=== PATIENT | male | born 1995 | race Caucasian/White ===

== ENCOUNTER 2017-02-24 21:05 | Emergency (ER) | payer SELFPAY ==
[~2017-02-24] VITALS: Ht 175.3 cm; Wt 82.0 kg
[2017-02-24 21:31] VITALS: TEMP 37.2; Ht 175.3 cm; Wt 82.0 kg
--- NOTE | 2017-02-24 22:08 | DIAGNOSTIC IMAGING REPORT ---
RIGHT MIDDLE FINGER 3 VIEWS HISTORY: Right middle finger injury and pain. COMPARISON: None. FINDINGS: Nondisplaced comminuted fracture within the proximal phalanx of the right middle finger. There is soft tissue swelling within the proximal right middle finger. No radiopaque foreign bodies. No dislocation. No radiopaque foreign bodies. IMPRESSION: Nondisplaced fracture within the proximal phalanx of the right middle finger. Electronically signed by: Morgan Sanchez M.D. 02/24/2017 10:06 PM Dictated Date/Time: 02/24/2017 10:05 PM
[2017-02-24] MEDS ORDERED: XYLOCAINE 1%/SOD BICARB 20 ML VIAL INFIL ONE (22:12)
[2017-02-24] MEDS ORDERED: CEPH500C2 PO (22:27)
[2017-02-24] MEDS ORDERED: CEPHALEXIN 500MG HOME PACK 1 EA BTL PO ONE (22:30)
[2017-02-24 22:36] VITALS: BP 128/72; PULSE 70; O2SAT 98
--- NOTE | 2017-02-25 04:43 | EMERGENCY ROOM VISIT NOTE ---
ED Visit Note First contact with patient: 22:05 CHIEF COMPLAINT: Finger laceration HISTORY OF PRESENT ILLNESS: This 21 yo patient presents to the emergency department with family after cutting the right f middle finger after he cut it on a piece of metal pipe that fell. The bleeding has not stopped. Denies weakness or numbness of the finger. The patient has limited range of motion of the finger. The patient rates the pain as throbbing and 5/10. The patient denies any other injuries. The patient's tetanus shot is up to date. REVIEW OF SYSTEMS: A 6 system review of systems was completed with positives and pertinent negatives listed in the HPI. ALLERGIES: Erythromycin, macrolides MEDICATIONS: None PMH: None SOCIAL HISTORY: No drug use PHYSICAL EXAM: Vital Signs: Reviewed Nurse's notes, vital signs stable. GENERAL : Pleasant male, in no acute distress, well developed, well nourished. SKIN: There is a 3 cm long laceration on the dorsal aspect of the right middle finger. The edges gape apart with traction. There is no foreign material in the wound and it looks clean. There is bleeding. No deep structures such as tendons , bones, or significant blood vessels are seen in the base of the wound. Limited Extension and flexion of the finger secondary to pain. Full range of motion of the wrist and other fingers. Capillary refill less than 2 seconds. Normal sensation to light and sharp touch. EMERGENCY DEPARTMENT COURSE: I examined the patient. Using sterile technique the wound was cleansed with Betadine. 2 ml of 1% buffered lidocaine was used to perform a digital block to anesthetize the patient. The area was sterilely draped. Once the patient was anesthetized, the wound was copiously irrigated under pressure with sterile saline. The wound was explored and there were no deep structures injured. The laceration was repaired using 5 simple interrupted 5-0 nylon sutures. The patient tolerated the procedure well. Hemostasis was achieved. The area was cleaned with sterile saline and dressed with bacitracin ointment and bandage. X-ray the finger was reviewed by myself and read by radiology and concerning for nondisplaced fracture of the proximal phalanx. Patient was placed in a finger splint and neurovascular status was rechecked and replacement and is intact. He was started on antibiotics for open finger fracture. He Is advised to follow-up with orthopedics in a few days or here in the ER sooner for severe pain, signs of infection, numbness, tingling , worsening signs or symptoms or as needed. The patient was discharged home in good condition. Differential diagnosis includes sprain, strain, fracture, open fracture, laceration, tendon injury, vascular injury, and other etiologies were considered. DIAGNOSIS: #1 open finger fracture with laceration to the right hand middle finger DISCHARGE INSTRUCTIONS & TREATMENT: As below Problem List Medical Problems: (1) Hand contusion Status: Resolved Current/Historical Medications Scheduled Cephalexin Monohydrate (Keflex), 500 MG PO QID Allergies Coded Allergies: Erythromycin (Unverified Allergy, Unknown, VOMITING, 02/24/17) Macrolides (Unverified Allergy, Unknown, VOMITING, 02/24/17) Vital Signs Date Time Temp Pulse Resp B/P (MAP) Pulse Ox O2 Delivery O2 Flow Rate FiO2 02/24/17 22:36 70 17 128/72 98 02/24/17 21:31 37.2 76 18 147/74 100 Room Air Medications Administered Medications (Trade) Dose Ordered Sig/Evonne Route Start Time Stop Time Status Last Admin Dose Admin Cephalexin Monohydrate (Keflex 500MG Home Pack) 1 homepack NOW ONCE PO 02/24/17 22:30 02/24/17 22:31 DC 02/24/17 22:35 1 HOMEPACK Departure Information Impression Primary Impression: Open fracture of finger of right hand Dispostion Home / Self-Care Condition GOOD Prescriptions Cephalexin Monohydrate (KEFLEX) 500 Mg Cap 500 MG PO QID for 9 Days, #36 CAP Prov: Renetta Yi ., MIKAELA 02/24/17 Referrals Yusef Schumacher MD Forms WORK / SCHOOL INSTRUCTIONS, HOME CARE DOCUMENTATION FORM, IMPORTANT VISIT INFORMATION Patient Instructions [facility], ED Fx Finger Open Additional Instructions Cephalexin(Keflex) 500mg: Take one pill four times daily for 10 days. All antibiotics can cause diarrhea. If this occurs and you feel worse or it does not resolve in 1-2 days follow up with your doctor or return to the Emergency Department as this could be signs of serious underlying problems. Any medication can cause an allergic reaction, stop the pills immediately and return to the ER for rash, hives, breathing difficulties, or swelling. Ibuprofen(Motrin, Advil) may be used for fever or pain. Use 600mg every six hours as needed. Take with food. Avoid using more than 2400mg in a 24 hour period. Do not use 2400mg per day for more than three consecutive days without physician direction. Prolonged inappropriate use can lead to stomach upset or ulcers. (AND/OR) Acetaminophen(Tylenol) may be used for fever or pain. Use 1000mg every six hours as needed. Avoid using more than 3000mg in a 24 hour period. Antibiotic ointment and bandage to the areas until healed. Follow up with family doctor or return for any signs of infection (increasing redness, swelling , drainage, or fever). Keep covered when in sun until fully healed then SPF 50 or higher until scar healed. Wear finger splint. Do not have it so tight that you cannot feel your finger. Rest and drink plenty of fluids. Continue current medications. Return to the ER for severe pain, fevers, spreading redness, or any worsening of your condition. Follow up with ortho within 2-3 days for a recheck of the current condition.
== END 2017-02-24 22:38 | disposition home or self-care (01) ==
LOC: C.EDB 21:07 → C.EDA 22:38
DX: S61.212A Laceration without foreign body of right middle finger without damage to nail, initial encounter (principal); S62.642B Nondisplaced fracture of proximal phalanx of right middle finger, initial encounter for open fracture; W20.8XXA Other cause of strike by thrown, projected or falling object, initial encounter; Z88.3 Allergy status to other anti-infective agents; Z88.8 Allergy status to other drugs, medicaments and biological substances

== ENCOUNTER 2017-08-17 14:01 | Emergency (ER) | payer OTHER ==
[~2017-08-17] VITALS: Ht 175.3 cm; Wt 84.3 kg
[2017-08-17 14:35] VITALS: TEMP 36.7; Ht 175.3 cm; Wt 84.3 kg
[2017-08-17] MEDS ORDERED: ACETAMINOPHEN 325 MG TAB PO STA (14:59)
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
[2017-08-17 15:56] VITALS: BP 150/81; PULSE 70; O2SAT 99
== END 2017-08-17 15:59 | disposition home or self-care (01) ==
LOC: C.EDB 14:03 → C.EDD 15:59
DX: S06.0X0A Concussion without loss of consciousness, initial encounter (principal); V47.5XXA Car driver injured in collision with fixed or stationary object in traffic accident, initial encounter; Z80.9 Family history of malignant neoplasm, unspecified; Z83.3 Family history of diabetes mellitus; Z82.49 Family history of ischemic heart disease and other diseases of the circulatory system

== ENCOUNTER 2021-04-16 13:03 | Inpatient (IN) ==
[2021-04-16] MEDS ORDERED: SODIUM CHLORIDE 0.9% 1000ML 1,000 ML IV ONE (13:29)
[2021-04-16 14:00] LABS: Basophils # (auto) 0.02 K/uL (0-0.2); Basophils % (auto) 0.2 %; Hematocrit (blood only) 44.2 % (42-52); Hemoglobin 15.6 g/dL (14.0-18.0); Immature Granulocytes # (auto) 0.02 K/uL (0.00-0.02); Immature Granulocytes % (auto) 0.2 %; Lymphocytes # (auto) 1.45 K/uL (1.2-3.4); Lymphocytes % (auto) 16.8 %; Mean Corpuscular Hemoglobin 30.8 pg (25-34); Mean Corpuscular Hgb Conc 35.3 g/dL (32-36); Mean Corpuscular Volume 87.4 fL (80-100); Mean Platelet Volume 10.3 fL (7.4-10.4); Monocytes # (auto) 0.32 K/uL (0.11-0.59); Monocytes % (auto) 3.7 %; Neutrophils # (auto) 6.82 K/uL (1.4-6.5); Neutrophils % (auto) 79.1 %; Platelet Count 242 K/uL (130-400); RDW Coefficient of Variation 12.7 % (11.5-14.5); RDW Standard Deviation 40.6 fL (36.4-46.3); Red Blood Count 5.06 M/uL (4.7-6.1); White Blood Count 8.63 K/uL (4.8-10.8)
[2021-04-16] MEDS ORDERED: AcetylCYSTEINE IV 21 HR REGIMEN (>40KG) IV STA (14:03)
--- NOTE | 2021-04-16 14:03 | CT Scan Report ---
CT head/brain wo con CLINICAL HISTORY: Altered mental status. Reported overdose. COMPARISON STUDY: 01/18/2021 CT DOSE: 669.45 mGycm TECHNIQUE: Standard CT of the Brain was performed without IV contrast. A dose lowering technique was utilized adhering to the principles of ALARA. FINDINGS: Extraaxial space: There is no evidence for subdural hematoma. There are no extra-axial fluid collecti ons. Ventricles and cisterns: The ventricles are normal in size and configuration. There is no evidence f or midline shift or mass effect. Parenchyma: There is no subarachnoid or intraparenchymal hemorrhage. There is no evidence for an acu te infarct or cerebral edema. There is homogeneous attenuation of the brain parenchyma. There are no gross mass lesions. Osseous structures: There is no evidence for an acute fracture. The visualized paranasal sinuses are clear. The mastoid air cells are clear bilaterally. Soft tissues: There is no evidence for focal soft tissue swelling. IMPRESSION: No acute intracerebral pathology. ACT 112: Negative or not required by law. Electronically signed by: Frankie Almeida M.D. 04/16/2021 2:01 PM
[2021-04-16] MEDS ORDERED: AcetylCYSTEINE 15,000 MG in DEXTROSE 5% 200 ML IV ONE (14:04)
[2021-04-16 14:23] LABS: Acetaminophen 117 ug/ml (10-30); Alanine Aminotransferase 64 (12-78); Albumin Level 4.2 gm/dl (3.4-5.0); Aspartate Aminotransferase 25 U/L (15-37); BUN Creatinine Ratio 7.8 (10-20); Blood Urea Nitrogen 8 mg/dl (7-18); Calcium 8.9 mg/dl (8.5-10.1); Carbon Dioxide 23 mmol/L (21-32); Chloride 109 mmol/L (98-107); Creatinine Clr Calc Pharmacy 137.4 ml/min; Est GFR (African American) 121.6 ml/min; Est GFR (Non-African American) 104.9 ml/min; Glucose 133 mg/dl (70-99); Magnesium 2.1 mg/dl (1.8-2.4); Potassium 3.8 mmol/L (3.5-5.1); Salicylate < 1.7 mg/dl (2.8-20); Sodium 141 mmol/L (136-145)
[2021-04-16 14:34] LABS: Albumin Globulin Ratio 1.2 (0.9-2); Alkaline Phosphatase 74 U/L (45-117); Bilirubin,Total 0.6 mg/dl (0.2-1); Globulin 3.5 gm/dl (2.5-4.0); Total Protein 7.7 gm/dl (6.4-8.2); Troponin I < 0.015 ng/ml (0-0.045)
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
[2021-04-16 15:06] LABS: Partial Thromboplastin Time 27.4 Seconds (21.0-31.0); Prothrombin Time 10.3 Seconds (9.0-12.0)
[2021-04-16] MEDS ORDERED: AcetylCYSTEINE 5,000 MG in DEXTROSE 5% 500 ML IV ONE (15:26)
[2021-04-16] MEDS ORDERED: ONDANSETRON INJ 2 MG/ML 2 ML VIAL ONE (15:38)
--- NOTE | 2021-04-16 15:39 | XRay Report ---
XR chest 1V portable CLINICAL HISTORY: intentional overdose. Evaluate cardiopulmonary status COMPARISON STUDY: No previous studies for comparison. TECHNIQUE: 1 view of the chest FINDINGS: Single frontal view of the chest demonstrates the cardiomediastinal silhouette to be within normal li mits. The lungs are clear of alveolar opacities. There is no evidence for pleural effusion. There is no evidence for vascular congestion. There is no acute osseous pathology. IMPRESSION: No acute cardiopulmonary disease. ACT 112: Negative or not required by law. Electronically signed by: Frankie Almeida M.D. 04/16/2021 3:37 PM
[2021-04-16] MEDS ORDERED: ONDANSETRON INJ 2 MG/ML 2 ML VIAL IV STA ×2 (15:40→16:14)
--- NOTE | 2021-04-16 16:41 | Electrocardiogram Report ---
Test Reason : Blood Pressure : / mmHG Vent. Rate : 083 BPM Atrial Rate : 083 BPM P-R Int : 178 ms QRS Dur : 094 ms QT Int : 370 ms P-R-T Axes : 047 064 014 degrees QTc Int : 434 ms Normal sinus rhythm Normal ECG No previous ECGs available Confirmed by Elkin Parmar ([id number]) on 04/16/2021 4:40:42 PM Referred By: REFERRED SELF Confirmed By:Elkin Parmar
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
[2021-04-16 18:42] LABS: Amphetamines+Metham, Urine Neg (Neg); Barbiturates, Urine Neg (Neg); Benzodiazepine, Urine Neg (Neg); Cocaine, Urine Neg (Neg); MDMA (Ecstacy), Urine Neg (Neg); Methadone, Urine Neg (Neg)
[2021-04-16] MEDS ORDERED: AcetylCYSTEINE 10,000 MG in DEXTROSE 5% 1,000 ML IV ONE (19:25)
[2021-04-16 19:39] LABS: Opiate, Urine Neg (Neg); Phencyclidine, Urine Neg (Neg)
[2021-04-16] MEDS ORDERED: FLUARIX QUADRIVALENT 0.5 ML SYR IM ONE (19:58)
[2021-04-16] MEDS: LACTATED RINGER'S 1,000 ML IV SCH (22:59)
[2021-04-17 06:50] LABS: Basophils # (auto) 0.01 K/uL (0-0.2); Basophils % (auto) 0.1 %; Eosinophils # (auto) 0.04 K/uL (0-0.5); Eosinophils % (auto) 0.6 %; Hematocrit (blood only) 43.3 % (42-52); Hemoglobin 15.1 g/dL (14.0-18.0); Immature Granulocytes # (auto) 0.01 K/uL (0.00-0.02); Immature Granulocytes % (auto) 0.1 %; Lymphocytes # (auto) 2.13 K/uL (1.2-3.4); Lymphocytes % (auto) 29.6 %; Mean Corpuscular Hemoglobin 30.9 pg (25-34); Mean Corpuscular Hgb Conc 34.9 g/dL (32-36); Mean Corpuscular Volume 88.7 fL (80-100); Mean Platelet Volume 10.4 fL (7.4-10.4); Monocytes # (auto) 0.62 K/uL (0.11-0.59); Monocytes % (auto) 8.6 %; Neutrophils # (auto) 4.39 K/uL (1.4-6.5); Platelet Count 211 K/uL (130-400); RDW Coefficient of Variation 12.9 % (11.5-14.5); RDW Standard Deviation 41.7 fL (36.4-46.3); Red Blood Count 4.88 M/uL (4.7-6.1)
[2021-04-17 06:58] LABS: INR 1.1 (0.9-1.1); Prothrombin Time 11.2 Seconds (9.0-12.0)
[2021-04-17 07:22] LABS: Albumin Level 3.8 gm/dl (3.4-5.0); BUN Creatinine Ratio 6.3 (10-20); Calcium 9.4 mg/dl (8.5-10.1); Creatinine Clr Calc Pharmacy 159.8 ml/min; Est GFR (African American) 140.7 ml/min; Est GFR (Non-African American) 121.4 ml/min; Potassium 3.3 mmol/L (3.5-5.1)
[2021-04-17 07:24] LABS: Albumin Globulin Ratio 1.2 (0.9-2); Bilirubin,Total 0.6 mg/dl (0.2-1); Globulin 3.3 gm/dl (2.5-4.0); Total Protein 7.1 gm/dl (6.4-8.2)
[2021-04-17] MEDS: LACTATED RINGER'S 1,000 ML IV SCH ×3 (07:49→23:50)
[2021-04-17 11:19] LABS: INR 1.1 (0.9-1.1); Prothrombin Time 11.1 Seconds (9.0-12.0)
[2021-04-17 11:30] LABS: Albumin Level 3.7 gm/dl (3.4-5.0); Bilirubin Direct 0.1 mg/dl (0-0.2); Bilirubin,Total 0.5 mg/dl (0.2-1); Total Protein 7.2 gm/dl (6.4-8.2)
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
--- NOTE | 2021-04-17 13:52 | Hospitalist Progress Note ---
Date of Service April 17, 2021 Assessment & Plan (1) Acetaminophen overdose: Plan: On admission,Acetaminophen level 117 ug/m (at maximum level taken 6 hours after ingestion, 100ug/ml cut off for treatment at this timeline) Started on 21 hours IV acetylcysteine protocol an recommendation per poison control. last dose around 3pm today No liver failure on admission. Plt 242. INR 1.0. Repeat in AM. (2) Drug overdose of undetermined intent: Plan: One to one observation, suicidal checks, safe tray Appreciate psychiatry Patient not allowed to leave AMA for inpatient psych (3) Back pain: Plan: No acetaminophen or NSAIDs Will add topical lidocaine if need pain relief Plan: VTE Prophylaxis - low risk, no treatment Diet - safe tray Disposition - admit to PCU Admission and Anticipated Discharge Date Admission Date: April 16, 2021 Subjective patient seen and examined today, denies intent was suicide, denies abdominal pain Review of Systems Review of Systems: All systems reviewed are negative, apart from the ones contained in the history. Physical Exam Physical Exam: The patient is awake, alert and oriented 3, well developed and well nourished, normocephalic and atraumatic, lying in bed and in no acute distress. HEENT--PERRL, EOMI, mucous membranes and oropharynx mildly dry Neck--supple. No JVD. No bruits. Thyroid normal, trachea midline, no adenopathy. Heart--normal S1 and S2. No murmurs, rubs or gallops. Lungs--clear bilaterally, no respiratory distress, no accessory muscle use. Abdomen--normal bowel sounds and soft. Mild epigastric and left sided abdominal pain Extremities--no cyanosis or clubbing. No edema. Dermatologic--normal skin turgor, normal color, no abnormal lymph nodes, no rash. Neurologic--cranial nerves II through XII grossly intact. Rheumatologic--normal range of motion. Psychiatric--normal affect. Results & Data Results & Data ([facility]) Vital Signs (Past 12 Hours) Vital Signs Temp Pulse Pulse Resp BP Pulse Ox 04/17/21 11:13 98.1 F 88 19 141/83 H 95 04/17/21 08:00 64 04/17/21 07:56 98.6 F 84 17 139/86 93 04/17/21 05:45 97.9 F 79 16 127/86 98 04/17/21 03:18 76 04/17/21 02:09 99.1 F 76 16 139/6 L 98 Laboratory Results Laboratory Results - last 24 hr 04/16/21 04/16/21 04/16/21 13:44 13:44 13:44 WBC 8.63 RBC 5.06 Hgb 15.6 Hct 44.2 MCV 87.4 MCH 30.8 MCHC 35.3 RDW Std Deviation 40.6 RDW Coeff of Jose Francisco 12.7 Plt Count 242 MPV 10.3 Immature Gran % (Auto) 0.2 Neut % (Auto) 79.1 Lymph % (Auto) 16.8 [place] % (Auto) 3.7 Eos % (Auto) 0.0 Baso % (Auto) 0.2 Neut # (Auto) 6.82 H Lymph # (Auto) 1.45 [place] # (Auto) 0.32 Eos # (Auto) 0.00 Baso # (Auto) 0.02 Immature Gran # (Auto) 0.02 PT 10.3 INR 1.0 APTT 27.4 PTT Ratio 1.0 Sodium 141 Potassium 3.8 Chloride 109 H Carbon Dioxide 23 Anion Gap 9.0 BUN 8 Creatinine 1.00 Est Cr Clr Drug Dosing 137.4 Est GFR ( Amer) 121.6 Est GFR (Non-Af Amer) 104.9 BUN/Creatinine Ratio 7.8 L Glucose 133 H Lactate Calcium 8.9 Magnesium 2.1 Total Bilirubin 0.6 Direct Bilirubin AST 25 ALT 64 Alkaline Phosphatase 74 Troponin I < 0.015 Total Protein 7.7 Albumin 4.2 Globulin 3.5 Albumin/Globulin Ratio 1.2 TSH 2.760 Salicylates Urine Opiates Screen Ur Methadone, Qual Acetaminophen Urine Barbiturates Ur Phencyclidine (PCP) U Amphetamin/Meth Scrn MDMA (Ecstasy) Screen U Benzodiazepines Scrn Ur Cocaine Metabolite U Marijuana (THC) Screen Ethyl Alcohol mg/dL SARS-CoV-2, RNA, NAAT 04/16/21 04/16/21 04/16/21 13:44 13:44 14:12 WBC RBC Hgb Hct MCV MCH MCHC RDW Std Deviation RDW Coeff of Jose Francisco Plt Count MPV Immature Gran % (Auto) Neut % (Auto) Lymph % (Auto) [place] % (Auto) Eos % (Auto) Baso % (Auto) Neut # (Auto) Lymph # (Auto) [place] # (Auto) Eos # (Auto) Baso # (Auto) Immature Gran # (Auto) PT INR APTT PTT Ratio Sodium Potassium Chloride Carbon Dioxide Anion Gap BUN Creatinine Est Cr Clr Drug Dosing Est GFR ( Amer) Est GFR (Non-Af Amer) BUN/Creatinine Ratio Glucose Lactate 2.4 H* Calcium Magnesium Total Bilirubin Direct Bilirubin AST ALT Alkaline Phosphatase Troponin I Total Protein Albumin Globulin Albumin/Globulin Ratio TSH Salicylates < 1.7 L Urine Opiates Screen Ur Methadone, Qual Acetaminophen 117 H Urine Barbiturates Ur Phencyclidine (PCP) U Amphetamin/Meth Scrn MDMA (Ecstasy) Screen U Benzodiazepines Scrn Ur Cocaine Metabolite U Marijuana (THC) Screen Ethyl Alcohol mg/dL < 3.0 SARS-CoV-2, RNA, NAAT 04/16/21 04/16/21 04/16/21 15:20 16:02 22:45 WBC RBC Hgb Hct MCV MCH MCHC RDW Std Deviation RDW Coeff of Jose Francisco Plt Count MPV Immature Gran % (Auto) Neut % (Auto) Lymph % (Auto) [place] % (Auto) Eos % (Auto) Baso % (Auto) Neut # (Auto) Lymph # (Auto) [place] # (Auto) Eos # (Auto) Baso # (Auto) Immature Gran # (Auto) PT INR APTT PTT Ratio Sodium Potassium Chloride Carbon Dioxide Anion Gap BUN Creatinine Est Cr Clr Drug Dosing Est GFR ( Amer) Est GFR (Non-Af Amer) BUN/Creatinine Ratio Glucose Lactate 1.9 0.8 Calcium Magnesium Total Bilirubin Direct Bilirubin AST ALT Alkaline Phosphatase Troponin I Total Protein Albumin Globulin Albumin/Globulin Ratio TSH Salicylates Urine Opiates Screen Neg Ur Methadone, Qual Neg Acetaminophen Urine Barbiturates Neg Ur Phencyclidine (PCP) Neg U Amphetamin/Meth Scrn Neg MDMA (Ecstasy) Screen Neg U Benzodiazepines Scrn Neg Ur Cocaine Metabolite Neg U Marijuana (THC) Screen Neg Ethyl Alcohol mg/dL SARS-CoV-2, RNA, NAAT 04/16/21 04/17/21 04/17/21 Unknown 06:31 06:31 WBC 7.20 RBC 4.88 Hgb 15.1 Hct 43.3 MCV 88.7 MCH 30.9 MCHC 34.9 RDW Std Deviation 41.7 RDW Coeff of Jose Francisco 12.9 Plt Count 211 MPV 10.4 Immature Gran % (Auto) 0.1 Neut % (Auto) 61.0 Lymph % (Auto) 29.6 [place] % (Auto) 8.6 Eos % (Auto) 0.6 Baso % (Auto) 0.1 Neut # (Auto) 4.39 Lymph # (Auto) 2.13 [place] # (Auto) 0.62 H Eos # (Auto) 0.04 Baso # (Auto) 0.01 Immature Gran # (Auto) 0.01 PT 11.2 INR 1.1 APTT PTT Ratio Sodium Potassium Chloride Carbon Dioxide Anion Gap BUN Creatinine Est Cr Clr Drug Dosing Est GFR ( Amer) Est GFR (Non-Af Amer) BUN/Creatinine Ratio Glucose Lactate Calcium Magnesium Total Bilirubin Direct Bilirubin AST ALT Alkaline Phosphatase Troponin I Total Protein Albumin Globulin Albumin/Globulin Ratio TSH Salicylates Urine Opiates Screen Ur Methadone, Qual Acetaminophen Urine Barbiturates Ur Phencyclidine (PCP) U Amphetamin/Meth Scrn MDMA (Ecstasy) Screen U Benzodiazepines Scrn Ur Cocaine Metabolite U Marijuana (THC) Screen Ethyl Alcohol mg/dL SARS-CoV-2, RNA, NAAT NEGATIVE 04/17/21 04/17/21 04/17/21 06:31 06:31 10:59 WBC RBC Hgb Hct MCV MCH MCHC RDW Std Deviation RDW Coeff of Jose Francisco Plt Count MPV Immature Gran % (Auto) Neut % (Auto) Lymph % (Auto) [place] % (Auto) Eos % (Auto) Baso % (Auto) Neut # (Auto) Lymph # (Auto) [place] # (Auto) Eos # (Auto) Baso # (Auto) Immature Gran # (Auto) PT 11.1 INR 1.1 APTT PTT Ratio Sodium 141 Potassium 3.3 L Chloride 110 H Carbon Dioxide 26 Anion Gap 5.0 BUN 5 L Creatinine 0.86 Est Cr Clr Drug Dosing 159.8 Est GFR ( Amer) 140.7 Est GFR (Non-Af Amer) 121.4 BUN/Creatinine Ratio 6.3 L Glucose 112 H Lactate 0.9 Calcium 9.4 Magnesium Total Bilirubin 0.6 Direct Bilirubin AST 13 L ALT 60 Alkaline Phosphatase 64 Troponin I Total Protein 7.1 Albumin 3.8 Globulin 3.3 Albumin/Globulin Ratio 1.2 TSH Salicylates Urine Opiates Screen Ur Methadone, Qual Acetaminophen Urine Barbiturates Ur Phencyclidine (PCP) U Amphetamin/Meth Scrn MDMA (Ecstasy) Screen U Benzodiazepines Scrn Ur Cocaine Metabolite U Marijuana (THC) Screen Ethyl Alcohol mg/dL SARS-CoV-2, RNA, NAAT 04/17/21 10:59 WBC RBC Hgb Hct MCV MCH MCHC RDW Std Deviation RDW Coeff of Jose Francisco Plt Count MPV Immature Gran % (Auto) Neut % (Auto) Lymph % (Auto) [place] % (Auto) Eos % (Auto) Baso % (Auto) Neut # (Auto) Lymph # (Auto) [place] # (Auto) Eos # (Auto) Baso # (Auto) Immature Gran # (Auto) PT INR APTT PTT Ratio Sodium Potassium Chloride Carbon Dioxide Anion Gap BUN Creatinine Est Cr Clr Drug Dosing Est GFR ( Amer) Est GFR (Non-Af Amer) BUN/Creatinine Ratio Glucose Lactate Calcium Magnesium Total Bilirubin 0.5 Direct Bilirubin 0.1 AST 16 ALT 58 Alkaline Phosphatase 69 Troponin I Total Protein 7.2 Albumin 3.7 Globulin Albumin/Globulin Ratio TSH Salicylates Urine Opiates Screen Ur Methadone, Qual Acetaminophen Urine Barbiturates Ur Phencyclidine (PCP) U Amphetamin/Meth Scrn MDMA (Ecstasy) Screen U Benzodiazepines Scrn Ur Cocaine Metabolite U Marijuana (THC) Screen Ethyl Alcohol mg/dL SARS-CoV-2, RNA, NAAT PG Care Time/CCT Total # of Minutes Spent Total Time Spent with Patient: Total time spent is greater than 50% in coordination of care (as documented) at patient's floor/unit and/or counseling patient: Coding Level of Care Code 93322 Subseq Hosp Care Lvl 2 Diagnoses Acetaminophen overdose T39.1X1A Drug overdose of undetermined intent T50.904A Back pain M54.9
[2021-04-18 06:51] LABS: INR 1.1 (0.9-1.1); Prothrombin Time 10.9 Seconds (9.0-12.0)
[2021-04-18] MEDS: LACTATED RINGER'S 1,000 ML IV SCH (07:29)
[2021-04-18 07:41] LABS: Albumin Level 3.5 gm/dl (3.4-5.0); Bilirubin Direct 0.1 mg/dl (0-0.2); Bilirubin,Total 0.5 mg/dl (0.2-1); Total Protein 6.7 gm/dl (6.4-8.2)
--- NOTE | 2021-04-18 11:57 | Hospitalist Progress Note ---
Date of Service April 18, 2021 Assessment & Plan (1) Acetaminophen overdose: Plan: On admission,Acetaminophen level 117 ug/m (at maximum level taken 6 hours after ingestion, 100ug/ml cut off for treatment at this timeline) Started on 21 hours IV acetylcysteine protocol an recommendation per poison control. Patient has completed his acetylcysteine dose (2) Drug overdose of undetermined intent: Plan: One to one observation, suicidal checks, safe tray Appreciate psychiatry for outpatient psych follow up (3) Back pain: Plan: No acetaminophen or NSAIDs Will add topical lidocaine if need pain relief (4) Toxic encephalopathy: Plan: most likely secondary to drug overdose. Now resolved. patient back to baseline Plan: VTE Prophylaxis - low risk, no treatment Diet - safe tray Disposition - admit to PCU He is medically cleared and stable for discharge Admission and Anticipated Discharge Date Admission Date: April 16, 2021 Discharge to outpatient psych. he is medically cleared and stable for discharge Subjective patient seen and examined today, no new complaints, itching to be discharged Review of Systems Review of Systems: All systems reviewed are negative, apart from the ones contained in the history. Physical Exam Physical Exam: The patient is awake, alert and oriented 3, well developed and well nourished, normocephalic and atraumatic, lying in bed and in no acute distress. HEENT--PERRL, EOMI, mucous membranes and oropharynx mildly dry Neck--supple. No JVD. No bruits. Thyroid normal, trachea midline, no adenopathy. Heart--normal S1 and S2. No murmurs, rubs or gallops. Lungs--clear bilaterally, no respiratory distress, no accessory muscle use. Abdomen--normal bowel sounds and soft. Mild epigastric and left sided abdominal pain Extremities--no cyanosis or clubbing. No edema. Dermatologic--normal skin turgor, normal color, no abnormal lymph nodes, no rash . Neurologic--cranial nerves II through XII grossly intact. Rheumatologic--normal range of motion. Psychiatric--normal affect. Results & Data Results & Data ([facility]) Vital Signs (Past 12 Hours) Vital Signs Temp Pulse Pulse Resp BP Pulse Ox 04/18/21 11:42 98.4 F 102 H 18 138/85 04/18/21 08:56 74 04/18/21 08:16 98.6 F 92 H 155/88 H 04/18/21 03:46 97.7 F 75 18 142/85 H 97 04/18/21 00:00 84 PG Care Time/CCT Total # of Minutes Spent Total Time Spent with Patient: Total time spent is greater than 50% in coordination of care (as documented) at patient's floor/unit and/or counseling patient: Coding Level of Care Code 95680 Subseq Hosp Care Lvl 2 Diagnoses Acetaminophen overdose T39.1X1A Drug overdose of undetermined intent T50.904A Back pain M54.9 Toxic encephalopathy G92.9
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
--- NOTE | 2021-04-18 13:37 | Psychiatric Progress Note ---
Date of Service April 18, 2021 Impression / Recommendations Impression 25 yo male with no formal psych history presents following unexplained but significant ingestion of OTC meds, received NAC for elevated Tylenol level. (1) Drug overdose of undetermined intent: given above, d/c 1-on-1 stable for discharge for outpatient level of care given that he completed safety plan and agreed to outpatient counseling. case discussed with Dr. Walsh who is in agreement with these recs. Risk Factors Assessment Do You Have Access To A Gun?: No Interval History Identifying Information 25 yo male with no prior psych history admit following impulsive polydrug OD. Chief Complaint "Yeah I'd really like to get home to my son". Review of Systems Notes denies physical complaints across 12 body systems other than his baseline back/neck issues. Subjective Subjective Patient was seen & assessed and interval progress reviewed with nursing and hospitalist. Patient remained on 1-on-1 obs overnight on medical floor without incident and continues to deny SI. Staff have made calls on consecutive days to his mother who is comfortable with his return home, would prefer KAYLA given care for 4 yo son. 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 There has been no evidence of psychosis or susana and he continues to deny depression. Although there is no clear explanation for the ingestion there is no direct evidence that it was a suicide attempt and I feel an involuntary commitment would be countertherapeutic given he has family support and mother agrees to secure OTC meds. He denies a history of confusion with post concussive headache and is clear that he will not take extra medicati on in the future. Physical Exam Psychiatric A+Ox3, euthymic affect Apperance: appropriately dressed and appropriately groomed Eye Contact: good eye contact Motor Behavior: no abnormal motor movements Speech: normal rate/rhythm/volume of speech Mood: no depressed mood Thought Process: goal directed thought process Thought Content: reality based without delusions Suicidal Thoughts: denies suicidal thoughts Homicidal Thoughts: denies homicidal thoughts Hallucinations: no auditory hallucinations and no visual hallucinations Cognition: attention grossly intact and language grossly intact Estimated Intelligence: consistent with education level Vital Signs (Past 24 Hours) Last Vital Signs Temp 36.9 C 04/18/21 13:11 Pulse 102 H 04/18/21 13:11 Resp 16 04/18/21 13:11 BP 130/81 04/18/21 13:11 Pulse Ox 97 04/18/21 13:11 Results & Data ([facility]) Laboratory Results Laboratory Results - last 24 hr 04/18/21 04/18/21 06:07 06:07 PT 10.9 INR 1.1 Total Bilirubin 0.5 Direct Bilirubin 0.1 AST 15 ALT 54 Alkaline Phosphatase 63 Total Protein 6.7 Albumin 3.5 Current Inpatient Medications Current Inpatient Medications: Current Inpatient Medications Lactated Ringer's (Lr) 1,000 mls @ 125 mls/hr IV .Q8H EMMA Stop: 05/16/21 22:44 Last Admin: 04/18/21 07:29 Dose: 125 mls/hr Documented by: Mental Health & Subst Abuse Tx Therapist Name of Therapist: Stephen Rausch Therapist's Date of Therapist Appointment: 05/01/21 Time of Therapist Appointment: 9:30am Therapy Appointment Comment: [address] [facility] [address]
== END 2021-04-18 14:06 | disposition home or self-care (01) | DRG 917 ==
LOC: ED 13:03 → EDINP 15:10 → SUATTDRO 15:10 → 1E 19:00 → 2S 04-17 01:21